=== PATIENT | male | born 1950 | race Caucasian/White ===

== ENCOUNTER 2020-02-27 11:14 | Emergency (ER) | payer SELFPAY ==
[~2020-02-27] VITALS: Ht 177.8 cm; Wt 91.0 kg
[~2020-02-27 11:14] MED LIST: AMLO-150 PO; AZIT500T PO; CLOP75TA PO; DILT360T PO; FLUT1DIS3 INH; INSU100I28 SQ-INSULIN; IPRA3AMP30 NPPB; LISI-167 PO; LISI-170 PO; LISI20TA PO; METF500T17 PO; NICO-486 TD; PRED10TA PO; SIMV40TA20 PO; TIOT18CA INH
[2020-02-27 11:18] VITALS: BP 124/97
== END 2020-02-27 13:25 | disposition home or self-care (01) ==
LOC: ED 12:02
DX: B02.9 Zoster without complications (principal); I10 Essential (primary) hypertension; E11.9 Type 2 diabetes mellitus without complications; J44.9 Chronic obstructive pulmonary disease, unspecified; F17.200 Nicotine dependence, unspecified, uncomplicated; Z86.73 Personal history of transient ischemic attack (TIA), and cerebral infarction without residual deficits
CPT/HCPCS: 99283; J7512